=== PATIENT | male | born 1965 | race Caucasian/White ===

== ENCOUNTER → 2016-09-15 | Outpatient (REF) | payer OTHER ==
[~2016-09-15] MED LIST: /FEXO18TA OR; /GLYB5TA OR; AMBI5TAB OR; AMIT10TA2 OR; AMITRIPTYLINE OR; ASPI81TA63 OR; CIPR500T19; DEPA500T2 OR; GLUCOMETER STRIPS; LISI2.5T OR; MAXA10TA17 OR; METF500T4 OR; MULTIVIT; PRED10TA2 OR; PROZ20CA OR; TOPAMAX; TOPI100T; VENTAER IN; VICO5TAB; ZOCO40TA OR; ZOLO100T; ZYRT10TA6 OR; [UNRECOGNIZED DRUG - OTHER]
[2016-09-15 11:52] LABS: ALBUMIN 3.7 GM/DL (3.2-5.2); ALBUMIN/GLOBULIN RATIO 1.16 (1.00-1.93); ALKALINE PHOSPHATASE 132 U/L (45-117); ALT/SGPT 48 U/L (12-78); ANION GAP 8 MEQ/L (8-16); AST/SGOT 21 U/L (15-37); BILIRUBIN,TOTAL 0.5 MG/DL (0.2-1.0); BLOOD UREA NITROGEN 18 MG/DL (7-18); CALCIUM LEVEL 8.9 MG/DL (8.5-10.1); CARBON DIOXIDE LEVEL 28 MEQ/L (21-32); CHLORIDE LEVEL 103 MEQ/L (98-107); CHOLESTEROL LEVEL 156 MG/DL (<200); GLOMERULAR FILTRATION RATE > 60.0 (>56); GLUCOSE, FASTING 251 MG/DL (70-105); POTASSIUM SERUM 4.4 MEQ/L (3.5-5.1); SODIUM LEVEL 139 MEQ/L (136-145); TOTAL PROTEIN 6.9 GM/DL (6.4-8.2); TRIGLYCERIDES LEVEL 500 MG/DL (<150)
== END ==
LOC: M SFHCCLAY 08:47
PROVIDERS: ATTEND Nurse Practitioner
DX: E11.8 Type 2 diabetes mellitus with unspecified complications (principal)

== ENCOUNTER 2017-01-15 16:07 | Emergency (ER) | payer OTHER ==
[~2017-01-15] VITALS: Ht 172.7 cm; Wt 112.3 kg
[2017-01-15] MEDS ORDERED: CELE40TA PO (16:31)
[2017-01-15] MEDS ORDERED: FARX1TAB3 PO (16:31)
[2017-01-15] MEDS ORDERED: BYDU1INJ (16:31)
[2017-01-15] MEDS ORDERED: JANU50TA25 PO (16:31)
[2017-01-15] MEDS ORDERED: ATOR80TA59 PO (16:31)
[2017-01-15] MEDS ORDERED: ASPI81TA85 PO (16:31)
[2017-01-15] MEDS ORDERED: AMBI10TA PO (16:31)
[2017-01-15] MEDS ORDERED: RIZA10TA2 PO (16:31)
[2017-01-15] MEDS ORDERED: LISI2.5T3 PO (16:31)
[2017-01-15] MEDS ORDERED: SUMAtriptan SUCCINATE 6 MG/0.5 ML VIAL SC ONE (17:00)
[2017-01-15] MEDS ORDERED: ACETAMINOPHEN 325 MG TAB PO ONE (17:00)
[2017-01-15] MEDS ORDERED: IBUPROFEN 800 MG TAB PO ONE (17:00)
[2017-01-15 18:01] VITALS: BP 123/81
--- NOTE | 2017-01-15 19:07 | REP ---
RIGHT KNEE SERIES: Five views of the right knee are performed. There is no acute fracture or dislocation. There is mild to moderate medial joint space narrowing with subchondral sclerosis and mid spurring. There is a small joint effusion. There is mild superior patellar spurring. IMPRESSION: Degenerative changes. Small joint effusion. No evidence of fracture or dislocation. Signed by Kevin Triana MD 01/15/2017 08:19 P
--- NOTE | 2017-01-15 19:08 | REP ---
RIGHT HAND SERIES: Four views of the right hand are performed. There is no acute fracture or dislocation. There is mild narrowing at the 3rd through 5th distal interphalangeal joints. There is slight narrowing of the 4th and 5th proximal interphalangeal joints. IMPRESSION: Mild degenerative changes. No fracture or dislocation. Signed by Kevin Triana MD 01/15/2017 08:19 P
[2017-04-21] MEDS ORDERED: SUMA20SP (19:17)
[2017-04-21] MEDS ORDERED: RIBO100C PO (19:17)
[2017-04-21] MEDS ORDERED: BENT10CA PO (23:03)
[2017-04-21] MEDS ORDERED: PROC2.5C PR (23:03)
[2017-04-21] MEDS ORDERED: AUGM875T28 PO (23:03)
== END 2017-01-15 18:35 | disposition home or self-care (01) ==
LOC: M ED 16:07
DX: G43.909 Migraine, unspecified, not intractable, without status migrainosus (principal); S60.221A Contusion of right hand, initial encounter; S80.01XA Contusion of right knee, initial encounter; X58.XXXA Exposure to other specified factors, initial encounter; Y92.099 Unspecified place in other non-institutional residence as the place of occurrence of the external cause; Y93.9 Activity, unspecified; Y99.9 Unspecified external cause status; Z79.82 Long term (current) use of aspirin; Z79.899 Other long term (current) drug therapy

== ENCOUNTER → 2017-02-05 | Outpatient (REF) | payer OTHER ==
[~2017-02-05] MED LIST changes: +AMBI10TA PO; +ASPI81TA85 PO; +ATOR80TA59 PO; +AUGM875T28 PO; +BENT10CA PO; +BYDU1INJ; +CELE40TA PO; +FARX1TAB3 PO; +JANU50TA25 PO; +LISI2.5T3 PO; +PROC2.5C PR; +RIBO100C PO; +RIZA10TA2 PO; +SUMA20SP
[2017-02-05 12:31] LABS: ALBUMIN 3.7 GM/DL (3.2-5.2); ALBUMIN/GLOBULIN RATIO 1.12 (1.00-1.93); ALKALINE PHOSPHATASE 127 U/L (45-117); ALT/SGPT 50 U/L (12-78); ANION GAP 8 MEQ/L (8-16); AST/SGOT 25 U/L (15-37); BILIRUBIN,TOTAL 0.6 MG/DL (0.2-1.0); BLOOD UREA NITROGEN 15 MG/DL (7-18); CALCIUM LEVEL 8.8 MG/DL (8.5-10.1); CARBON DIOXIDE LEVEL 28 MEQ/L (21-32); CHLORIDE LEVEL 106 MEQ/L (98-107); CHOLESTEROL LEVEL 131 MG/DL (<200); CREATININE FOR GFR 0.79 MG/DL (0.70-1.30); GLOMERULAR FILTRATION RATE > 60.0 (>56); GLUCOSE, FASTING 149 MG/DL (70-105); POTASSIUM SERUM 4.5 MEQ/L (3.5-5.1); SODIUM LEVEL 142 MEQ/L (136-145); TRIGLYCERIDES LEVEL 215 MG/DL (<150)
== END ==
LOC: M SFHCCLAY 08:41
PROVIDERS: ATTEND Nurse Practitioner
DX: E11.8 Type 2 diabetes mellitus with unspecified complications (principal)

== ENCOUNTER 2017-08-18 11:46 | Emergency (ER) | payer OTHER ==
[2017-08-18] MEDS: NS 1,000 ML IV (12:51)
[2017-08-18] MEDS: KETOROLAC 30 MG/ML VIAL (J1885) IV (12:51)
[2017-08-18] MEDS: ONDANSETRON 4MG/2ML VIAL (J2405) IV (12:51)
[2017-08-18 12:59] LABS: BASO # 0.1 10^3/uL (0.0-0.2); BASO % 1.2 % (0.0-1.0); EOS # 0.2 10^3/uL (0.0-0.50); EOS % 1.9 % (0.0-3.0); HEMATOCRIT 51.4 % (42.0-52.0); HEMOGLOBIN 16.9 g/dl (14.0-18.0); IMMATURE GRANULOCYTE % 0.6 % (0-3.0); LYMPH # 2.4 10^3/uL (1.5-4.5); LYMPH % 22.3 % (24.0-44.0); MEAN CORPUSCULAR HEMOGLOBIN 28.2 pg (27.0-33.0); MEAN CORPUSCULAR HGB CONC 32.9 g/dl (32.0-36.5); MEAN CORPUSCULAR VOLUME 85.7 fl (80.0-96.0); MONO # 0.8 10^3/uL (0.0-0.8); NEUTROPHILS # 7.3 10^3/uL (1.8-7.7); PLATELET COUNT, AUTOMATED 279 10^3/uL (150-450); RED CELL DISTRIBUTION WIDTH 14.2 % (11.5-14.5)
[2017-08-18 13:05] LABS: KETONE, URINE AUTO RFX NEGATIVE (NEGATIVE); LEUKOCYTE ESTERASE UR AUTO RFX NEGATIVE (NEGATIVE); MUCUS, URINE RFX SMALL (NEGATIVE); NITRITE, URINE AUTO RFX NEGATIVE (NEGATIVE); RBC, URINE AUTO RFX 0 /HPF (0-3); SPECIFIC GRAVITY UR AUTO RFX 1.032 (1.002-1.035); SQUAM EPITHELIAL CELL UR AURFX 0 /HPF (0-6); WBC, URINE AUTO RFX 0 /HPF (0-3)
[2017-08-18 13:09] LABS: INR 0.93; PROTHROMBIN TIME 12.5 SECONDS (12.4-14.5)
[2017-08-18 13:27] LABS: ALBUMIN 4.3 GM/DL (3.2-5.2); ALBUMIN/GLOBULIN RATIO 1.05 (1.00-1.93); ALKALINE PHOSPHATASE 132 U/L (45-117); ALT/SGPT 54 U/L (12-78); ANION GAP 10 MEQ/L (8-16); AST/SGOT 30 U/L (7-37); BILIRUBIN,DIRECT 0.2 MG/DL (0.0-0.2); BILIRUBIN,TOTAL 0.8 MG/DL (0.2-1.0); BLOOD UREA NITROGEN 16 MG/DL (7-18); CALCIUM LEVEL 9.7 MG/DL (8.5-10.1); CARBON DIOXIDE LEVEL 27 MEQ/L (21-32); CHLORIDE LEVEL 101 MEQ/L (98-107); CREATININE FOR GFR 1.07 MG/DL (0.70-1.30); GLOMERULAR FILTRATION RATE > 60.0 (>56); GLUCOSE, FASTING 220 MG/DL (70-100); LIPASE 151 U/L (73-393); POTASSIUM SERUM 4.2 MEQ/L (3.5-5.1); SODIUM LEVEL 138 MEQ/L (136-145); TOTAL PROTEIN 8.4 GM/DL (6.4-8.2)
== END 2017-08-18 14:42 | disposition home or self-care (01) ==
LOC: M ED 11:46
DX: R10.11 Right upper quadrant pain (principal); R11.0 Nausea; E11.9 Type 2 diabetes mellitus without complications; I10 Essential (primary) hypertension; I25.10 Atherosclerotic heart disease of native coronary artery without angina pectoris; E78.5 Hyperlipidemia, unspecified; Z79.899 Other long term (current) drug therapy; Z79.82 Long term (current) use of aspirin; Z79.84 Long term (current) use of oral hypoglycemic drugs; [UNRECOGNIZED DIAGNOSIS CODE]
CPT/HCPCS: J2405

== ENCOUNTER 2017-11-23 11:49 | Emergency (ER) | payer OTHER ==
[2017-11-23 14:44] LABS: KETONE, URINE AUTO RFX TRACE mg/dL (NEGATIVE); LEUKOCYTE ESTERASE UR AUTO RFX NEGATIVE (NEGATIVE); MUCUS, URINE RFX SMALL (NEGATIVE); NITRITE, URINE AUTO RFX NEGATIVE (NEGATIVE); RBC, URINE AUTO RFX 1 /HPF (0-3); SPECIFIC GRAVITY UR AUTO RFX 1.032 (1.002-1.035); SQUAM EPITHELIAL CELL UR AURFX 0 /HPF (0-6); WBC, URINE AUTO RFX 1 /HPF (0-3)
== END 2017-11-23 17:26 | disposition left against medical advice (07) ==
LOC: M ED 11:49
DX: R31.9 Hematuria, unspecified (principal); Z53.21 Procedure and treatment not carried out due to patient leaving prior to being seen by health care provider

== ENCOUNTER → 2018-08-16 | Outpatient (REF) | payer MEDICARE, OTHER ==
[~2018-08-16] MED LIST changes: +CYCL5TAB PO; +FISH120012 PO; -LISI2.5T3 PO; +LISI2.5T5 PO; +MAGN1TAB25 PO; +MELA5TAB20 PO; +METO1TAB32 PO; +MIRT30TA3 PO; +ROPI0.5T PO; +SUPE1TAB PO; +VITA100067 PO
[2018-08-16 11:34] LABS: HEMATOCRIT 46.3 % (42.0-52.0); HEMOGLOBIN 14.6 g/dl (13.5-17.5); MEAN CORPUSCULAR HEMOGLOBIN 27.8 pg (27.0-33.0); MEAN CORPUSCULAR HGB CONC 31.5 g/dl (32.0-36.5); PLATELET COUNT, AUTOMATED 237 10^3/uL (150-450); RED BLOOD COUNT 5.26 10^6/uL (4.30-6.10); WHITE BLOOD COUNT 8.4 10^3/uL (4.0-10.0)
[2018-08-16 11:50] LABS: ALBUMIN 3.7 GM/DL (3.2-5.2); ALT/SGPT 53 U/L (12-78); BILIRUBIN,TOTAL 0.6 MG/DL (0.2-1.0); BLOOD UREA NITROGEN 13 MG/DL (7-18); CALCIUM LEVEL 8.8 MG/DL (8.5-10.1); CARBON DIOXIDE LEVEL 31 MEQ/L (21-32); CHLORIDE LEVEL 105 MEQ/L (98-107); CHOLESTEROL LEVEL 175 MG/DL (<200); CHOLESTEROL RISK RATIO 5.833 (<5); CREATININE FOR GFR 0.92 MG/DL (0.70-1.30); GLOMERULAR FILTRATION RATE > 60.0 (>56); GLUCOSE, FASTING 155 MG/DL (70-100); HDL CHOLESTEROL 30 MG/DL (>40); LDL CHOLESTEROL 68 MG/DL (<100); NON-HDL-C 145 MG/DL; POTASSIUM SERUM 4.8 MEQ/L (3.5-5.1); SODIUM LEVEL 142 MEQ/L (136-145); TOTAL PROTEIN 6.9 GM/DL (6.4-8.2); TRIGLYCERIDES LEVEL 385 MG/DL (<150)
[2018-08-16 11:55] LABS: HEMOGLOBIN A1c 8.6 %
[2018-08-16 13:32] LABS: CREATININE, URINE 83.6 MG/DL; MALB URINE SIEMENS 6.5 MG/L; MAU/CREAT RATIO 7.7 MCG/MG (0.0-30.0)
== END ==
LOC: M SFHCCLAY 08:52
PROVIDERS: ATTEND Nurse Practitioner Family
DX: I10 Essential (primary) hypertension (principal); E11.8 Type 2 diabetes mellitus with unspecified complications; E88.81 Metabolic syndrome and other insulin resistance

== ENCOUNTER 2019-06-12 11:46 | Emergency (ER) | payer OTHER, MEDICARE ==
[~2019-06-12] VITALS: Ht 172.7 cm; Wt 11.4 kg
[~2019-06-12 11:46] MED LIST changes: -/GLYB5TA OR; +GLYB1TAB29 OR; +LISI-1046 PO; -LISI2.5T5 PO; -MAGN1TAB25 PO; +MAGN1TAB26 PO
[2019-06-12 12:27] LABS: BASO # 0.1 10^3/uL (0.0-0.2); BASO % 1.3 % (0.0-1.0); EOS # 0.2 10^3/uL (0.0-0.5); EOS % 2.6 % (0.0-3.0); LYMPH # 2.1 10^3/uL (1.5-5.0); LYMPH % 25.8 % (24.0-44.0); MEAN CORPUSCULAR HEMOGLOBIN 27.4 pg (27.0-33.0); MEAN CORPUSCULAR HGB CONC 30.8 g/dl (32.0-36.5); MEAN CORPUSCULAR VOLUME 89.2 fl (80.0-96.0); MONO # 0.6 10^3/uL (0.0-0.8); MONO % 7.3 % (0.0-5.0); NEUTROPHILS % 62.4 % (36.0-66.0); PLATELET COUNT, AUTOMATED 248 10^3/uL (150-450); RED BLOOD COUNT 5.83 10^6/uL (4.30-6.10)
[2019-06-12] MEDS ORDERED: NITROGLYCERIN 0.4 MG SUBL TABLET SL PRN (12:30)
[2019-06-12] MEDS ORDERED: METOPROLOL SUCC *XL* 25MG TAB (TopROL *XL*) PO ONE (12:30)
--- NOTE | 2019-06-12 12:32 | REP ---
Single view chest: 06/12/2019. Indication: Chest pain. Comparison: 06/26/2015. Findings: The lungs are clear. There is no pleural effusion or pneumothorax. The cardiomediastinal silhouette is unremarkable. Impression: No acute cardiopulmonary process. Electronically Signed by Evan George DO 06/12/2019 12:23 P
[2019-06-12 12:35] VITALS: BP 112/79
[2019-06-12 12:35] LABS: INR 1.02; PROTHROMBIN TIME 13.1 SECONDS (11.8-14.0)
[2019-06-12 12:36] LABS: PARTIAL THROMBOPLASTIN TIME 29.5 SECONDS (25.0-38.4)
[2019-06-12] MEDS ORDERED: SUMA100T2 PO (12:49)
[2019-06-12 12:53] LABS: ALBUMIN 3.8 GM/DL (3.2-5.2); ALT/SGPT 49 U/L (12-78); BILIRUBIN,DIRECT 0.1 MG/DL (0.0-0.2); BILIRUBIN,TOTAL 0.5 MG/DL (0.2-1.0); BLOOD UREA NITROGEN 12 MG/DL (7-18); CALCIUM LEVEL 9.3 MG/DL (8.5-10.1); CARBON DIOXIDE LEVEL 27 MEQ/L (21-32); CHLORIDE LEVEL 105 MEQ/L (98-107); CK-MB VALUE MASS < 1.0 NG/ML (<3.6); CPK CREATINE PHOSPHOKINASE 61 U/L (39-308); CREATININE FOR GFR 0.91 MG/DL (0.70-1.30); FREE T4 1.03 NG/DL (0.76-1.46); GLOMERULAR FILTRATION RATE > 60.0 (>56); GLUCOSE, FASTING 181 MG/DL (70-100); LIPASE 120 U/L (73-393); MB/CK RELATIVE INDEX 1.64 (< OR =4); POTASSIUM SERUM 4.9 MEQ/L (3.5-5.1); SODIUM LEVEL 141 MEQ/L (136-145); TOTAL PROTEIN 7.5 GM/DL (6.4-8.2); TROPONIN I < 0.02 NG/ML (< 0.10)
[2019-06-12 13:37] LABS: D-DIMER QUANT 329.91 ng/ml (<500)
[2019-06-12 18:52] LABS: CK-MB VALUE MASS < 1.0 NG/ML (<3.6); CPK CREATINE PHOSPHOKINASE 49 U/L (39-308); MB/CK RELATIVE INDEX 2.04 (< OR =4); TROPONIN I < 0.02 NG/ML (< 0.10)
[2019-06-12 19:17] VITALS: BP 120/58
--- NOTE | 2019-06-13 21:59 | ECGEPIP ---
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
--- NOTE | 2019-06-13 22:03 | ECGEPIP ---
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
== END 2019-06-12 19:35 | disposition home or self-care (01) ==
LOC: M ED 11:46
DX: I48.92 Unspecified atrial flutter (principal); R06.02 Shortness of breath; E11.9 Type 2 diabetes mellitus without complications; I10 Essential (primary) hypertension; E78.5 Hyperlipidemia, unspecified; G43.909 Migraine, unspecified, not intractable, without status migrainosus; Z79.899 Other long term (current) drug therapy; Z79.82 Long term (current) use of aspirin

== ENCOUNTER 2020-06-04 15:09 | Emergency (ER) | payer OTHER, MEDICARE ==
[~2020-06-04] VITALS: Ht 172.7 cm; Wt 115.9 kg
[~2020-06-04 15:09] MED LIST changes: -ASPI81TA85 PO; +ASPI81TA86 PO; -LISI-1046 PO; +LISI2.5T2 PO; -ROPI0.5T PO; +ROPI0.5T3 PO; +SUMA100T2 PO
[2020-06-04] MEDS ORDERED: LIDOCAINE 5% (LIDODERM) PATCH TD ONE (16:45)
[2020-06-04] MEDS ORDERED: diazePAM 10 MG TAB PO ONE (16:45)
--- NOTE | 2020-06-04 17:12 | REP ---
INDICATION: hip pain left. COMPARISON: None. TECHNIQUE: AP view of the pelvis is performed as well as AP and frogleg views of each hip. FINDINGS: No acute fracture or dislocation is seen. Small benign bone island is seen in the proximal left femur. I see no intrinsic osseous pathology. Very mild arthritic changes are seen at each hip joint with mild joint space narrowing and subchondral sclerosis. IMPRESSION: There are mild degenerative changes of the hips. <Electronically signed by Kevin Triana > 06/04/20 [id number]
[2020-06-04 17:25] VITALS: BP 140/73
[2020-06-04] MEDS ORDERED: ASPE4PAD TOP (17:59)
[2020-06-04] MEDS ORDERED: ROBA750T4 PO (17:59)
[2020-06-04] MEDS ORDERED: **NOTE PATIENT COMMENT** MISC XX SCH (21:00)
[2020-06-05] MEDS ORDERED: **NOTE PATIENT COMMENT** MISC XX ONE (05:00)
== END 2020-06-04 18:10 | disposition home or self-care (01) ==
LOC: M ED 15:09
DX: M25.552 Pain in left hip (principal); M16.0 Bilateral primary osteoarthritis of hip; E11.9 Type 2 diabetes mellitus without complications; I10 Essential (primary) hypertension; E78.5 Hyperlipidemia, unspecified; G89.29 Other chronic pain; M54.5 Low back pain; Z87.442 Personal history of urinary calculi; Z79.01 Long term (current) use of anticoagulants; Z79.82 Long term (current) use of aspirin; Z79.899 Other long term (current) drug therapy

== ENCOUNTER → 2020-07-04 | Outpatient (CLI) | payer SELFPAY ==
[~2020-07-04] MED LIST changes: +ASPE4PAD TOP; +ROBA750T4 PO
== END ==
LOC: M LABSMTC 12:52
PROVIDERS: ATTEND Pediatrics
DX: Z20.822 Contact with and (suspected) exposure to COVID-19 (principal)